=== PATIENT | female | born 1955 | race African-American/Black ===

== ENCOUNTER 2017-12-04 15:12 | Inpatient (IN) | payer MEDICARE, OTHER ==
[~2017-12-04] VITALS: Ht 162.6 cm; Wt 87.5 kg
[2017-12-04 15:45] VITALS: BP 157/98
[2017-12-04] MEDS ORDERED: DOCUSATE SODIUM 283 MG/5 ML MINI-ENEMA PR PRN (16:15)
[2017-12-04] MEDS ORDERED: INSULIN LISPRO 100 UNITS/ML SQ SCH (17:00)
[2017-12-04] MEDS ORDERED: DEXTROSE 50%-WATER 25 GM/50 ML SYRINGE IVP PRN (17:30)
[2017-12-04 18:14] LABS: GLUCOMETER DEV NAME(LOC) 2WR 1B; GLUCOSE,POINT OF CARE 219 MG/DL (70-110)
[2017-12-04] MEDS: MetFORMIN HCL 500 MG TABLET PO SCH (18:19)
[2017-12-04] MEDS: INSULIN LISPRO 100 UNITS/ML SQ SCH (18:20)
[2017-12-04 18:39] LABS: APPEARANCE,URINE CLEAR (CLEAR); BILIRUBIN,URINE NEGATIVE (NEGATIVE); GLUCOSE, URINE (UA) >=1000 mg/dL (NEGATIVE); KETONES,URINE NEGATIVE (NEGATIVE); LEUKOCYTE ESTERASE ,URINE NEGATIVE (NEGATIVE); NITRATE,URINE NEGATIVE (NEGATIVE); OCCULT BLOOD,URINE NEGATIVE (NEGATIVE); PROTEIN,URINE NEGATIVE (NEGATIVE); UROBILINOGEN,URINE 0.2 mg/dL (<=1.0)
[2017-12-04 19:26] LABS: BACTERIA,URINE None Seen /HPF (None Seen); RBC,URINE None Seen /HPF (0-2); SQUAMOUS EPITHELIAL CELL,UR Rare /LPF (None Seen); WBC,URINE None Seen /HPF (0-5)
[2017-12-04] MEDS: DOCUSATE SODIUM 100 MG CAPSULE PO SCH (21:07)
[2017-12-04] MEDS: SENNA 187 MG TABLET PO SCH (21:08)
[2017-12-04] MEDS: CARVEDILOL 6.25 MG TABLET PO SCH (21:08)
[2017-12-04] MEDS: INSULIN LISPRO 100 UNITS/ML SQ PRN (21:11)
[2017-12-04] MEDS: INSULIN GLARGINE,HUM.REC.ANLOG 100 UNITS/ML SQ SCH (21:11)
[2017-12-04 21:15] VITALS: BP 144/75
[2017-12-04 22:14] LABS: GLUCOMETER DEV NAME(LOC) 2WR 1B; GLUCOSE,POINT OF CARE 211 MG/DL (70-110)
[2017-12-05 00:37] VITALS: BP 140/83
[2017-12-05 06:43] LABS: GLUCOMETER DEV NAME(LOC) 2WR 1B; GLUCOSE,POINT OF CARE 168 MG/DL (70-110)
[2017-12-05 07:02] LABS: EOSINOPHILS % (AUTO) 0.6 % (1.0-6.0); HEMATOCRIT 41.1 % (36-46); HEMOGLOBIN 14.4 g/dL (12.0-16.0); LYMPHOCYTES # (AUTO) 2.4 K/uL (1.0-4.8); LYMPHOCYTES % (AUTO) 38.3 % (22.0-44.0); MEAN CORPUSCULAR HEMOGLOBIN 29.6 pg (26.0-34.0); MEAN CORPUSCULAR HGB CONC 35.1 G/dL (31.0-37.0); MEAN CORPUSCULAR VOLUME 84 fL (80-100); MONOCYTES # (AUTO) 0.5 K/uL (0.1-1.0); MONOCYTES % (AUTO) 7.5 % (2.0-9.0); NEUTROPHILS # (AUTO) 3.3 K/uL (1.8-7.7); NEUTROPHILS % (AUTO) 52.6 % (40.0-70.0); PLATELET COUNT (AUTO) 288 K/uL (150-450); RED BLOOD CELL COUNT(AUTO) 4.87 MIL/uL (4.00-5.20); RED CELL DISTRIBUTION WIDTH 12.9 % (11.5-14.5)
[2017-12-05 07:06] LABS: ALANINE AMINOTRANSFERASE 20 U/L (12-78); ALBUMIN 3.2 g/dL (3.4-5.0); ALKALINE PHOSPHATASE 87 U/L (46-116); ANION GAP 8 mmol/L (8-16); ASPARTATE AMINOTRANSFERASE 12 U/L (15-37); BILIRUBIN,TOTAL 0.4 mg/dL (0.1-1.0); CALCIUM, TOTAL 9.2 mg/dL (8.8-10.5); CARBON DIOXIDE 27 mmol/L (22-29); CHLORIDE 104 mmol/L (98-107); CREATININE 0.63 mg/dL (0.60-1.30); GLOMERULAR FILTR. RATE CALC > 60 mL/min (>60); GLUCOSE,RANDOM 171 mg/dL (70-110); POTASSIUM 3.9 mmol/L (3.5-5.1); SODIUM SERUM 139 mmol/L (136-145); TOTAL PROTEIN, SERUM 6.4 g/dL (6.4-8.2); UREA NITROGEN, BLOOD 12 mg/dL (7-18)
[2017-12-05 07:30] VITALS: BP 146/90
[2017-12-05] MEDS: CLOPIDOGREL BISULFATE 75 MG TABLET PO SCH (08:15)
[2017-12-05] MEDS: MetFORMIN HCL 500 MG TABLET PO SCH ×2 (08:16→17:56)
[2017-12-05] MEDS: VALSARTAN 160 MG TABLET PO SCH (08:16)
[2017-12-05] MEDS: CHOLECALCIFEROL (VIT D3) 1,000 UNITS TABLET PO SCH (08:16)
[2017-12-05] MEDS: CARVEDILOL 6.25 MG TABLET PO SCH ×2 (08:16→20:57)
[2017-12-05] MEDS: ATORVASTATIN CALCIUM 40 MG TABLET PO SCH (08:16)
[2017-12-05] MEDS: ENOXAPARIN SODIUM 40 MG/0.4 ML PF SYRINGE SQ SCH (08:17)
[2017-12-05] MEDS: INSULIN LISPRO 100 UNITS/ML SQ SCH ×3 (08:27→17:59)
[2017-12-05] MEDS: INSULIN LISPRO 100 UNITS/ML SQ PRN ×2 (08:28→21:07)
[2017-12-05] MEDS: ASPIRIN 81 MG CHEWABLE TABLET PO SCH (08:29)
[2017-12-05] MEDS: DOCUSATE SODIUM 100 MG CAPSULE PO SCH ×2 (08:29→20:56)
[2017-12-05] MEDS: FAMOTIDINE 20 MG TABLET PO SCH (08:29)
[2017-12-05] MEDS ORDERED: INSULIN LISPRO 100 UNITS/ML SQ SCH (11:30)
[2017-12-05 12:09] LABS: GLUCOMETER DEV NAME(LOC) 2WR 2E; GLUCOSE,POINT OF CARE 140 MG/DL (70-110)
[2017-12-05] MEDS ORDERED: PNEUMOCOCCAL VACCINE POLYVALENT 0.5 ML VIAL [PPSV23] IM ONE (14:15)
[2017-12-05 15:39] VITALS: BP 109/65
[2017-12-05 17:20] LABS: GLUCOMETER DEV NAME(LOC) 2WR 1B; GLUCOSE,POINT OF CARE 114 MG/DL (70-110)
[2017-12-05] MEDS ORDERED: CARV6 PO (18:34)
[2017-12-05] MEDS ORDERED: VALS160T2 PO (18:34)
[2017-12-05] MEDS ORDERED: ATOR20TA86 PO (18:34)
[2017-12-05] MEDS ORDERED: INSU3INS3 SQ (18:34)
[2017-12-05] MEDS ORDERED: ASPI-556 PO (18:34)
[2017-12-05] MEDS ORDERED: MIRALAX PO (18:34)
[2017-12-05] MEDS ORDERED: AMLO-512 PO (18:34)
[2017-12-05] MEDS ORDERED: CETI-290 PO (18:34)
[2017-12-05] MEDS ORDERED: METF500T7 PO (18:34)
[2017-12-05] MEDS ORDERED: VITAD1000 PO (18:34)
[2017-12-05] MEDS ORDERED: INSU100I3 SQ (18:34)
[2017-12-05 20:53] VITALS: BP 129/79
[2017-12-05] MEDS: SENNA 187 MG TABLET PO SCH (20:56)
[2017-12-05] MEDS: INSULIN GLARGINE,HUM.REC.ANLOG 100 UNITS/ML SQ SCH (21:10)
[2017-12-05 21:53] LABS: GLUCOMETER DEV NAME(LOC) 2WR 1B; GLUCOSE,POINT OF CARE 178 MG/DL (70-110)
[2017-12-06 03:54] VITALS: BP 132/86
[2017-12-06 06:13] LABS: GLUCOMETER DEV NAME(LOC) 2WR 2E; GLUCOSE,POINT OF CARE 141 MG/DL (70-110)
[2017-12-06 07:24] VITALS: BP 158/91
[2017-12-06] MEDS: CARVEDILOL 6.25 MG TABLET PO SCH ×2 (07:26→20:39)
[2017-12-06] MEDS ORDERED: ONDANSETRON HCL 4 MG TABLET PO PRN (08:00)
[2017-12-06] MEDS: DOCUSATE SODIUM 100 MG CAPSULE PO SCH ×2 (08:26→20:39)
[2017-12-06] MEDS: VALSARTAN 160 MG TABLET PO SCH (08:26)
[2017-12-06] MEDS: ATORVASTATIN CALCIUM 40 MG TABLET PO SCH (08:26)
[2017-12-06] MEDS: ENOXAPARIN SODIUM 40 MG/0.4 ML PF SYRINGE SQ SCH (08:26)
[2017-12-06] MEDS: FAMOTIDINE 20 MG TABLET PO SCH (08:26)
[2017-12-06] MEDS: CLOPIDOGREL BISULFATE 75 MG TABLET PO SCH (08:26)
[2017-12-06] MEDS: CHOLECALCIFEROL (VIT D3) 1,000 UNITS TABLET PO SCH (08:26)
[2017-12-06] MEDS: MetFORMIN HCL 500 MG TABLET PO SCH ×2 (08:27→17:30)
[2017-12-06] MEDS: ASPIRIN 81 MG CHEWABLE TABLET PO SCH (08:27)
[2017-12-06] MEDS: INSULIN LISPRO 100 UNITS/ML SQ PRN (08:48)
[2017-12-06] MEDS: INSULIN LISPRO 100 UNITS/ML SQ SCH ×3 (08:48→17:37)
[2017-12-06 12:29] LABS: GLUCOMETER DEV NAME(LOC) 2WR 1B; GLUCOSE,POINT OF CARE 135 MG/DL (70-110)
[2017-12-06 17:57] VITALS: BP 133/80
[2017-12-06 20:36] VITALS: BP 142/72
[2017-12-06] MEDS: SENNA 187 MG TABLET PO SCH (20:39)
[2017-12-06] MEDS: INSULIN GLARGINE,HUM.REC.ANLOG 100 UNITS/ML SQ SCH (20:48)
[2017-12-06 21:33] LABS: GLUCOMETER DEV NAME(LOC) 2WR 1B; GLUCOSE,POINT OF CARE 81 MG/DL (70-110)
[2017-12-06 22:28] LABS: GLUCOMETER DEV NAME(LOC) 2WR 2E; GLUCOSE,POINT OF CARE 107 MG/DL (70-110)
[2017-12-07 02:00] VITALS: BP 143/84
[2017-12-07 06:35] LABS: GLUCOMETER DEV NAME(LOC) 2WR 2E; GLUCOSE,POINT OF CARE 188 MG/DL (70-110)
[2017-12-07 07:43] VITALS: BP 139/90
[2017-12-07] MEDS: ENOXAPARIN SODIUM 40 MG/0.4 ML PF SYRINGE SQ SCH (08:07)
[2017-12-07] MEDS: MetFORMIN HCL 500 MG TABLET PO SCH ×2 (08:07→17:25)
[2017-12-07] MEDS: CLOPIDOGREL BISULFATE 75 MG TABLET PO SCH (08:08)
[2017-12-07] MEDS: ASPIRIN 81 MG CHEWABLE TABLET PO SCH (08:08)
[2017-12-07] MEDS: CHOLECALCIFEROL (VIT D3) 1,000 UNITS TABLET PO SCH (08:08)
[2017-12-07] MEDS: DOCUSATE SODIUM 100 MG CAPSULE PO SCH ×2 (08:08→21:36)
[2017-12-07] MEDS: FAMOTIDINE 20 MG TABLET PO SCH (08:08)
[2017-12-07] MEDS: CARVEDILOL 6.25 MG TABLET PO SCH ×2 (08:08→21:36)
[2017-12-07] MEDS: ATORVASTATIN CALCIUM 40 MG TABLET PO SCH (08:08)
[2017-12-07] MEDS: VALSARTAN 160 MG TABLET PO SCH (08:09)
[2017-12-07] MEDS: INSULIN LISPRO 100 UNITS/ML SQ SCH ×3 (08:10→17:26)
[2017-12-07] MEDS: INSULIN LISPRO 100 UNITS/ML SQ PRN ×2 (08:16→17:27)
[2017-12-07 12:04] LABS: GLUCOMETER DEV NAME(LOC) 2WR 2E; GLUCOSE,POINT OF CARE 113 MG/DL (70-110)
[2017-12-07 15:10] VITALS: BP 149/83
[2017-12-07 17:34] LABS: GLUCOMETER DEV NAME(LOC) 2WR 2E; GLUCOSE,POINT OF CARE 141 MG/DL (70-110)
[2017-12-07 21:00] VITALS: BP 132/73
[2017-12-07] MEDS: SENNA 187 MG TABLET PO SCH (21:36)
[2017-12-07] MEDS: INSULIN GLARGINE,HUM.REC.ANLOG 100 UNITS/ML SQ SCH (21:37)
[2017-12-07 22:23] LABS: GLUCOMETER DEV NAME(LOC) 2WR 2E; GLUCOSE,POINT OF CARE 124 MG/DL (70-110)
[2017-12-08 03:45] VITALS: BP 138/79
[2017-12-08 06:39] LABS: GLUCOMETER DEV NAME(LOC) 2WR 2E; GLUCOSE,POINT OF CARE 116 MG/DL (70-110)
[2017-12-08] MEDS: INSULIN LISPRO 100 UNITS/ML SQ SCH ×3 (07:00→18:18)
[2017-12-08 07:30] VITALS: BP 150/87
[2017-12-08] MEDS: MetFORMIN HCL 500 MG TABLET PO SCH ×2 (07:30→16:55)
[2017-12-08] MEDS: CARVEDILOL 6.25 MG TABLET PO SCH ×2 (09:00→21:18)
[2017-12-08] MEDS: CHOLECALCIFEROL (VIT D3) 1,000 UNITS TABLET PO SCH (09:00)
[2017-12-08] MEDS: ATORVASTATIN CALCIUM 40 MG TABLET PO SCH (09:00)
[2017-12-08] MEDS: FAMOTIDINE 20 MG TABLET PO SCH (09:00)
[2017-12-08] MEDS: DOCUSATE SODIUM 100 MG CAPSULE PO SCH ×2 (09:00→21:00)
[2017-12-08] MEDS: ASPIRIN 81 MG CHEWABLE TABLET PO SCH (09:00)
[2017-12-08] MEDS: VALSARTAN 160 MG TABLET PO SCH (09:00)
[2017-12-08] MEDS: CLOPIDOGREL BISULFATE 75 MG TABLET PO SCH (09:00)
[2017-12-08] MEDS: ENOXAPARIN SODIUM 40 MG/0.4 ML PF SYRINGE SQ SCH (09:00)
[2017-12-08 12:30] VITALS: BP 141/82
[2017-12-08] MEDS: AmLODIPine BESYLATE 5 MG TABLET PO SCH (12:37)
[2017-12-08 12:44] LABS: GLUCOMETER DEV NAME(LOC) 2WR 1B; GLUCOSE,POINT OF CARE 93 MG/DL (70-110)
[2017-12-08 15:42] VITALS: BP 128/81
[2017-12-08 17:54] LABS: GLUCOMETER DEV NAME(LOC) 2WR 2E; GLUCOSE,POINT OF CARE 85 MG/DL (70-110)
[2017-12-08] MEDS: SENNA 187 MG TABLET PO SCH (21:00)
[2017-12-08 21:13] VITALS: BP 124/72
[2017-12-08] MEDS: INSULIN GLARGINE,HUM.REC.ANLOG 100 UNITS/ML SQ SCH (21:20)
[2017-12-08 21:44] LABS: GLUCOMETER DEV NAME(LOC) 2WR 1B; GLUCOSE,POINT OF CARE 89 MG/DL (70-110)
[2017-12-08 23:58] VITALS: BP 131/76
[2017-12-09 06:30] LABS: GLUCOMETER DEV NAME(LOC) 2WR 2E; GLUCOSE,POINT OF CARE 92 MG/DL (70-110)
[2017-12-09 07:22] VITALS: BP 117/75
[2017-12-09] MEDS: FAMOTIDINE 20 MG TABLET PO SCH (08:28)
[2017-12-09] MEDS: CLOPIDOGREL BISULFATE 75 MG TABLET PO SCH (08:28)
[2017-12-09] MEDS: ASPIRIN 81 MG CHEWABLE TABLET PO SCH (08:28)
[2017-12-09] MEDS: CARVEDILOL 6.25 MG TABLET PO SCH ×2 (08:28→21:30)
[2017-12-09] MEDS: AmLODIPine BESYLATE 5 MG TABLET PO SCH (08:28)
[2017-12-09] MEDS: ATORVASTATIN CALCIUM 40 MG TABLET PO SCH (08:29)
[2017-12-09] MEDS: DOCUSATE SODIUM 100 MG CAPSULE PO SCH ×3 (08:29→21:30)
[2017-12-09] MEDS: ENOXAPARIN SODIUM 40 MG/0.4 ML PF SYRINGE SQ SCH (08:29)
[2017-12-09] MEDS: VALSARTAN 160 MG TABLET PO SCH (08:29)
[2017-12-09] MEDS: CHOLECALCIFEROL (VIT D3) 1,000 UNITS TABLET PO SCH (08:29)
[2017-12-09] MEDS: MetFORMIN HCL 500 MG TABLET PO SCH ×2 (08:29→17:23)
[2017-12-09] MEDS: INSULIN LISPRO 100 UNITS/ML SQ SCH ×3 (08:44→18:52)
[2017-12-09 12:24] LABS: GLUCOMETER DEV NAME(LOC) 2WR 2E; GLUCOSE,POINT OF CARE 131 MG/DL (70-110)
[2017-12-09 15:40] VITALS: BP 152/75
[2017-12-09 17:49] LABS: GLUCOMETER DEV NAME(LOC) 2WR 2E; GLUCOSE,POINT OF CARE 74 MG/DL (70-110)
[2017-12-09] MEDS: INSULIN GLARGINE,HUM.REC.ANLOG 100 UNITS/ML SQ SCH (21:00)
[2017-12-09] MEDS: SENNA 187 MG TABLET PO SCH ×2 (21:00→21:30)
[2017-12-09 21:24] VITALS: BP 135/65
[2017-12-09] MEDS: MELATONIN 3 MG TABLET PO SCH (21:30)
[2017-12-09 22:43] LABS: GLUCOMETER DEV NAME(LOC) 2WR 1B; GLUCOSE,POINT OF CARE 65 MG/DL (70-110)
[2017-12-09 23:18] LABS: GLUCOMETER DEV NAME(LOC) 2WR 2E; GLUCOSE,POINT OF CARE 84 MG/DL (70-110)
[2017-12-09 23:38] VITALS: BP 128/57
[2017-12-10 05:49] LABS: GLUCOMETER DEV NAME(LOC) 2WR 2E; GLUCOSE,POINT OF CARE 85 MG/DL (70-110)
[2017-12-10 07:42] VITALS: BP 145/80
[2017-12-10] MEDS: ATORVASTATIN CALCIUM 40 MG TABLET PO SCH (08:06)
[2017-12-10] MEDS: MetFORMIN HCL 500 MG TABLET PO SCH ×2 (08:06→16:21)
[2017-12-10] MEDS: ASPIRIN 81 MG CHEWABLE TABLET PO SCH (08:06)
[2017-12-10] MEDS: CHOLECALCIFEROL (VIT D3) 1,000 UNITS TABLET PO SCH (08:06)
[2017-12-10] MEDS: CLOPIDOGREL BISULFATE 75 MG TABLET PO SCH (08:07)
[2017-12-10] MEDS: DOCUSATE SODIUM 100 MG CAPSULE PO SCH ×2 (08:07→20:49)
[2017-12-10] MEDS: AmLODIPine BESYLATE 5 MG TABLET PO SCH (08:07)
[2017-12-10] MEDS: FAMOTIDINE 20 MG TABLET PO SCH (08:07)
[2017-12-10] MEDS: CARVEDILOL 6.25 MG TABLET PO SCH ×2 (08:07→20:46)
[2017-12-10] MEDS: VALSARTAN 160 MG TABLET PO SCH (08:07)
[2017-12-10] MEDS: ENOXAPARIN SODIUM 40 MG/0.4 ML PF SYRINGE SQ SCH (08:08)
[2017-12-10] MEDS: INSULIN LISPRO 100 UNITS/ML SQ SCH ×3 (08:20→18:34)
[2017-12-10 11:53] VITALS: BP 131/79
[2017-12-10 11:58] LABS: GLUCOMETER DEV NAME(LOC) 2WR 2E; GLUCOSE,POINT OF CARE 92 MG/DL (70-110)
[2017-12-10 15:33] VITALS: BP 131/69
[2017-12-10] MEDS: DICLOFENAC SODIUM 1% 100 GM GEL [2GM] TP SCH ×2 (16:21→20:46)
[2017-12-10 17:38] LABS: GLUCOMETER DEV NAME(LOC) 2WR 1B; GLUCOSE,POINT OF CARE 99 MG/DL (70-110)
[2017-12-10] MEDS: MELATONIN 3 MG TABLET PO SCH (20:48)
[2017-12-10] MEDS: SENNA 187 MG TABLET PO SCH (20:49)
[2017-12-10] MEDS: INSULIN GLARGINE,HUM.REC.ANLOG 100 UNITS/ML SQ SCH (20:50)
[2017-12-10 20:52] VITALS: BP 151/79
[2017-12-10 21:44] LABS: GLUCOMETER DEV NAME(LOC) 2WR 2E; GLUCOSE,POINT OF CARE 132 MG/DL (70-110)
[2017-12-11 02:15] VITALS: BP 132/71
[2017-12-11 06:19] LABS: GLUCOMETER DEV NAME(LOC) 2WR 2E; GLUCOSE,POINT OF CARE 98 MG/DL (70-110)
[2017-12-11 07:54] VITALS: BP 139/78
[2017-12-11] MEDS: POLYETHYLENE GLYCOL 3350 17 GM PACKET PO PRN (07:54)
[2017-12-11] MEDS: ASPIRIN 81 MG CHEWABLE TABLET PO SCH (07:55)
[2017-12-11] MEDS: CARVEDILOL 6.25 MG TABLET PO SCH ×2 (07:55→21:07)
[2017-12-11] MEDS: CHOLECALCIFEROL (VIT D3) 1,000 UNITS TABLET PO SCH (07:55)
[2017-12-11] MEDS: ENOXAPARIN SODIUM 40 MG/0.4 ML PF SYRINGE SQ SCH (07:55)
[2017-12-11] MEDS: MetFORMIN HCL 500 MG TABLET PO SCH ×2 (07:55→17:16)
[2017-12-11] MEDS: VALSARTAN 160 MG TABLET PO SCH (07:55)
[2017-12-11] MEDS: CLOPIDOGREL BISULFATE 75 MG TABLET PO SCH (07:56)
[2017-12-11] MEDS: DICLOFENAC SODIUM 1% 100 GM GEL [2GM] TP SCH ×3 (07:56→21:08)
[2017-12-11] MEDS: ATORVASTATIN CALCIUM 40 MG TABLET PO SCH (07:56)
[2017-12-11] MEDS: DOCUSATE SODIUM 100 MG CAPSULE PO SCH ×2 (07:56→21:00)
[2017-12-11] MEDS: AmLODIPine BESYLATE 5 MG TABLET PO SCH (07:56)
[2017-12-11] MEDS: FAMOTIDINE 20 MG TABLET PO SCH (07:56)
[2017-12-11] MEDS: INSULIN LISPRO 100 UNITS/ML SQ SCH ×3 (08:06→17:25)
[2017-12-11 12:38] LABS: GLUCOMETER DEV NAME(LOC) 2WR 1B; GLUCOSE,POINT OF CARE 85 MG/DL (70-110)
[2017-12-11 16:00] VITALS: BP 109/55
[2017-12-11] MEDS: SENNA 187 MG TABLET PO SCH (21:00)
[2017-12-11 21:04] VITALS: BP 156/77
[2017-12-11] MEDS: MELATONIN 3 MG TABLET PO SCH (21:07)
[2017-12-11] MEDS: INSULIN GLARGINE,HUM.REC.ANLOG 100 UNITS/ML SQ SCH (21:11)
[2017-12-11] MEDS: INSULIN LISPRO 100 UNITS/ML SQ PRN (21:12)
[2017-12-11 21:58] LABS: GLUCOMETER DEV NAME(LOC) 2WR 2E; GLUCOSE,POINT OF CARE 126 MG/DL (70-110)
[2017-12-11 21:58] LABS: GLUCOMETER DEV NAME(LOC) 2WR 2E; GLUCOSE,POINT OF CARE 179 MG/DL (70-110)
[2017-12-12 05:00] VITALS: BP 152/92
[2017-12-12 05:53] LABS: GLUCOMETER DEV NAME(LOC) 2WR 1B; GLUCOSE,POINT OF CARE 104 MG/DL (70-110)
[2017-12-12 07:10] VITALS: BP 140/75
[2017-12-12] MEDS: VALSARTAN 160 MG TABLET PO SCH (07:53)
[2017-12-12] MEDS: DICLOFENAC SODIUM 1% 100 GM GEL [2GM] TP SCH ×3 (07:53→21:34)
[2017-12-12] MEDS: CHOLECALCIFEROL (VIT D3) 1,000 UNITS TABLET PO SCH (07:53)
[2017-12-12] MEDS: ASPIRIN 81 MG CHEWABLE TABLET PO SCH (07:53)
[2017-12-12] MEDS: ATORVASTATIN CALCIUM 40 MG TABLET PO SCH (07:54)
[2017-12-12] MEDS: MetFORMIN HCL 500 MG TABLET PO SCH ×2 (07:54→16:53)
[2017-12-12] MEDS: CARVEDILOL 6.25 MG TABLET PO SCH ×2 (07:54→21:28)
[2017-12-12] MEDS: AmLODIPine BESYLATE 5 MG TABLET PO SCH (07:54)
[2017-12-12] MEDS: CLOPIDOGREL BISULFATE 75 MG TABLET PO SCH (07:54)
[2017-12-12] MEDS: FAMOTIDINE 20 MG TABLET PO SCH (07:54)
[2017-12-12] MEDS: DOCUSATE SODIUM 100 MG CAPSULE PO SCH ×2 (07:55→21:28)
[2017-12-12] MEDS: POLYETHYLENE GLYCOL 3350 17 GM PACKET PO PRN (07:55)
[2017-12-12] MEDS: ENOXAPARIN SODIUM 40 MG/0.4 ML PF SYRINGE SQ SCH (07:55)
[2017-12-12] MEDS: INSULIN LISPRO 100 UNITS/ML SQ SCH ×3 (08:53→18:01)
[2017-12-12] MEDS ORDERED: MELATONIN 3 MG TABLET PO PRN (12:15)
[2017-12-12 12:29] LABS: GLUCOMETER DEV NAME(LOC) 2WR 1B; GLUCOSE,POINT OF CARE 131 MG/DL (70-110)
[2017-12-12 15:30] VITALS: BP 124/64
[2017-12-12 17:49] LABS: GLUCOMETER DEV NAME(LOC) 2WR 2E; GLUCOSE,POINT OF CARE 119 MG/DL (70-110)
[2017-12-12 21:25] VITALS: BP 143/75
[2017-12-12] MEDS: SENNA 187 MG TABLET PO SCH (21:28)
[2017-12-12] MEDS: INSULIN GLARGINE,HUM.REC.ANLOG 100 UNITS/ML SQ SCH (21:31)
[2017-12-12] MEDS: INSULIN LISPRO 100 UNITS/ML SQ PRN (21:31)
[2017-12-12 21:43] LABS: GLUCOMETER DEV NAME(LOC) 2WR 1B; GLUCOSE,POINT OF CARE 165 MG/DL (70-110)
[2017-12-13 01:30] VITALS: BP 125/74
[2017-12-13 05:48] LABS: GLUCOMETER DEV NAME(LOC) 2WR 2E; GLUCOSE,POINT OF CARE 133 MG/DL (70-110)
[2017-12-13 08:12] VITALS: BP 154/92
[2017-12-13] MEDS: CLOPIDOGREL BISULFATE 75 MG TABLET PO SCH (08:26)
[2017-12-13] MEDS: ENOXAPARIN SODIUM 40 MG/0.4 ML PF SYRINGE SQ SCH (08:26)
[2017-12-13] MEDS: VALSARTAN 160 MG TABLET PO SCH (08:26)
[2017-12-13] MEDS: ATORVASTATIN CALCIUM 40 MG TABLET PO SCH (08:26)
[2017-12-13] MEDS: AmLODIPine BESYLATE 5 MG TABLET PO SCH (08:26)
[2017-12-13] MEDS: DICLOFENAC SODIUM 1% 100 GM GEL [2GM] TP SCH ×3 (08:26→21:37)
[2017-12-13] MEDS: MetFORMIN HCL 500 MG TABLET PO SCH ×2 (08:26→17:13)
[2017-12-13] MEDS: CHOLECALCIFEROL (VIT D3) 1,000 UNITS TABLET PO SCH (08:26)
[2017-12-13] MEDS: CARVEDILOL 6.25 MG TABLET PO SCH ×2 (08:26→21:36)
[2017-12-13] MEDS: ASPIRIN 81 MG CHEWABLE TABLET PO SCH (08:26)
[2017-12-13] MEDS: FAMOTIDINE 20 MG TABLET PO SCH (08:27)
[2017-12-13] MEDS: DOCUSATE SODIUM 100 MG CAPSULE PO SCH ×2 (08:30→21:00)
[2017-12-13] MEDS: INSULIN LISPRO 100 UNITS/ML SQ SCH ×3 (08:33→18:17)
[2017-12-13 12:09] LABS: GLUCOMETER DEV NAME(LOC) 2WR 1B; GLUCOSE,POINT OF CARE 120 MG/DL (70-110)
[2017-12-13 14:13] VITALS: BP 120/74
[2017-12-13 15:18] VITALS: BP 124/68
[2017-12-13 17:44] LABS: GLUCOMETER DEV NAME(LOC) 2WR 2E; GLUCOSE,POINT OF CARE 119 MG/DL (70-110)
[2017-12-13] MEDS: SENNA 187 MG TABLET PO SCH ×2 (21:00→21:37)
[2017-12-13 21:30] VITALS: BP 136/87
[2017-12-13] MEDS: INSULIN GLARGINE,HUM.REC.ANLOG 100 UNITS/ML SQ SCH (21:39)
[2017-12-13 22:19] LABS: GLUCOMETER DEV NAME(LOC) 2WR 2E; GLUCOSE,POINT OF CARE 109 MG/DL (70-110)
[2017-12-14 05:00] VITALS: BP 123/73
[2017-12-14 05:59] LABS: GLUCOMETER DEV NAME(LOC) 2WR 1B; GLUCOSE,POINT OF CARE 115 MG/DL (70-110)
[2017-12-14 07:45] VITALS: BP 139/92
[2017-12-14] MEDS: DICLOFENAC SODIUM 1% 100 GM GEL [2GM] TP SCH ×3 (07:59→21:07)
[2017-12-14] MEDS: ATORVASTATIN CALCIUM 40 MG TABLET PO SCH (08:00)
[2017-12-14] MEDS: ENOXAPARIN SODIUM 40 MG/0.4 ML PF SYRINGE SQ SCH (08:00)
[2017-12-14] MEDS: AmLODIPine BESYLATE 5 MG TABLET PO SCH (08:00)
[2017-12-14] MEDS: MetFORMIN HCL 500 MG TABLET PO SCH ×2 (08:02→16:56)
[2017-12-14] MEDS: VALSARTAN 160 MG TABLET PO SCH (08:02)
[2017-12-14] MEDS: CHOLECALCIFEROL (VIT D3) 1,000 UNITS TABLET PO SCH (08:02)
[2017-12-14] MEDS: CLOPIDOGREL BISULFATE 75 MG TABLET PO SCH (08:02)
[2017-12-14] MEDS: DOCUSATE SODIUM 100 MG CAPSULE PO SCH ×3 (08:03→21:07)
[2017-12-14] MEDS: ASPIRIN 81 MG CHEWABLE TABLET PO SCH (08:03)
[2017-12-14] MEDS: CARVEDILOL 6.25 MG TABLET PO SCH ×2 (08:03→21:07)
[2017-12-14] MEDS: FAMOTIDINE 20 MG TABLET PO SCH (08:08)
[2017-12-14] MEDS: INSULIN LISPRO 100 UNITS/ML SQ SCH ×3 (08:14→18:15)
[2017-12-14 12:03] LABS: GLUCOMETER DEV NAME(LOC) 2WR 2E; GLUCOSE,POINT OF CARE 119 MG/DL (70-110)
[2017-12-14 15:59] VITALS: BP 115/74
[2017-12-14 17:53] LABS: GLUCOMETER DEV NAME(LOC) 2WR 1B; GLUCOSE,POINT OF CARE 84 MG/DL (70-110)
[2017-12-14] MEDS: SENNA 187 MG TABLET PO SCH ×2 (21:00→21:07)
[2017-12-14 21:02] VITALS: BP 129/84
[2017-12-14] MEDS: INSULIN GLARGINE,HUM.REC.ANLOG 100 UNITS/ML SQ SCH (21:20)
[2017-12-14 22:08] LABS: GLUCOMETER DEV NAME(LOC) 2WR 1B; GLUCOSE,POINT OF CARE 100 MG/DL (70-110)
[2017-12-15 00:48] LABS: GLUCOMETER DEV NAME(LOC) 2WR 2E; GLUCOSE,POINT OF CARE 115 MG/DL (70-110)
[2017-12-15 01:00] VITALS: BP 140/89
[2017-12-15 06:03] LABS: GLUCOMETER DEV NAME(LOC) 2WR 2E; GLUCOSE,POINT OF CARE 147 MG/DL (70-110)
[2017-12-15 07:17] VITALS: BP 148/84
[2017-12-15] MEDS: VALSARTAN 160 MG TABLET PO SCH (07:37)
[2017-12-15] MEDS: CHOLECALCIFEROL (VIT D3) 1,000 UNITS TABLET PO SCH (07:37)
[2017-12-15] MEDS: ASPIRIN 81 MG CHEWABLE TABLET PO SCH (07:38)
[2017-12-15] MEDS: CLOPIDOGREL BISULFATE 75 MG TABLET PO SCH (07:38)
[2017-12-15] MEDS: ATORVASTATIN CALCIUM 40 MG TABLET PO SCH (07:38)
[2017-12-15] MEDS: CARVEDILOL 6.25 MG TABLET PO SCH ×2 (07:38→20:12)
[2017-12-15] MEDS: MetFORMIN HCL 500 MG TABLET PO SCH ×2 (07:38→17:25)
[2017-12-15] MEDS: AmLODIPine BESYLATE 5 MG TABLET PO SCH (07:38)
[2017-12-15] MEDS: FAMOTIDINE 20 MG TABLET PO SCH (07:38)
[2017-12-15] MEDS: INSULIN LISPRO 100 UNITS/ML SQ SCH ×3 (07:39→17:27)
[2017-12-15] MEDS: ENOXAPARIN SODIUM 40 MG/0.4 ML PF SYRINGE SQ SCH (07:39)
[2017-12-15] MEDS: INSULIN LISPRO 100 UNITS/ML SQ PRN (07:40)
[2017-12-15] MEDS: DICLOFENAC SODIUM 1% 100 GM GEL [2GM] TP SCH ×3 (07:41→20:13)
[2017-12-15] MEDS ORDERED: AmLODIPine BESYLATE 10 MG TABLET PO SCH (09:00)
[2017-12-15 12:04] LABS: GLUCOMETER DEV NAME(LOC) 2WR 1B; GLUCOSE,POINT OF CARE 116 MG/DL (70-110)
[2017-12-15 15:52] VITALS: BP 121/77
[2017-12-15 17:44] LABS: GLUCOMETER DEV NAME(LOC) 2WR 2E; GLUCOSE,POINT OF CARE 137 MG/DL (70-110)
[2017-12-15 20:11] VITALS: BP 124/70
[2017-12-15] MEDS: DOCUSATE SODIUM 100 MG CAPSULE PO SCH (20:13)
[2017-12-15] MEDS: SENNA 187 MG TABLET PO SCH (20:13)
[2017-12-15] MEDS: INSULIN GLARGINE,HUM.REC.ANLOG 100 UNITS/ML SQ SCH (21:23)
[2017-12-15 22:18] LABS: GLUCOMETER DEV NAME(LOC) 2WR 2E; GLUCOSE,POINT OF CARE 92 MG/DL (70-110)
[2017-12-16 01:00] VITALS: BP 107/62
[2017-12-16 06:19] LABS: GLUCOMETER DEV NAME(LOC) 2WR 2E; GLUCOSE,POINT OF CARE 131 MG/DL (70-110)
[2017-12-16 07:15] VITALS: BP 112/67
[2017-12-16] MEDS: MetFORMIN HCL 500 MG TABLET PO SCH ×2 (07:51→15:40)
[2017-12-16] MEDS: CLOPIDOGREL BISULFATE 75 MG TABLET PO SCH (07:52)
[2017-12-16] MEDS: ASPIRIN 81 MG CHEWABLE TABLET PO SCH (07:52)
[2017-12-16] MEDS: CARVEDILOL 6.25 MG TABLET PO SCH ×2 (07:52→20:29)
[2017-12-16] MEDS: FAMOTIDINE 20 MG TABLET PO SCH (07:52)
[2017-12-16] MEDS: CHOLECALCIFEROL (VIT D3) 1,000 UNITS TABLET PO SCH (07:52)
[2017-12-16] MEDS: ATORVASTATIN CALCIUM 40 MG TABLET PO SCH (07:52)
[2017-12-16] MEDS: ENOXAPARIN SODIUM 40 MG/0.4 ML PF SYRINGE SQ SCH (07:53)
[2017-12-16 07:56] VITALS: BP 112/67
[2017-12-16] MEDS: ACETAMINOPHEN 325 MG TABLET PO PRN ×2 (07:56→15:40)
[2017-12-16] MEDS: VALSARTAN 160 MG TABLET PO SCH (07:57)
[2017-12-16] MEDS: AmLODIPine BESYLATE 10 MG TABLET PO SCH (07:57)
[2017-12-16] MEDS: INSULIN LISPRO 100 UNITS/ML SQ SCH ×3 (07:59→17:38)
[2017-12-16] MEDS: DICLOFENAC SODIUM 1% 100 GM GEL [2GM] TP SCH ×3 (09:21→20:29)
[2017-12-16 14:08] LABS: GLUCOMETER DEV NAME(LOC) 2WR 2E; GLUCOSE,POINT OF CARE 103 MG/DL (70-110)
[2017-12-16 15:34] VITALS: BP 131/76
[2017-12-16 17:08] LABS: GLUCOMETER DEV NAME(LOC) 2WR 1B; GLUCOSE,POINT OF CARE 107 MG/DL (70-110)
[2017-12-16] MEDS: SENNA 187 MG TABLET PO SCH (20:29)
[2017-12-16] MEDS: DOCUSATE SODIUM 100 MG CAPSULE PO SCH ×2 (20:29→20:32)
[2017-12-16] MEDS: INSULIN GLARGINE,HUM.REC.ANLOG 100 UNITS/ML SQ SCH (20:31)
[2017-12-16 20:40] VITALS: BP 133/83
[2017-12-16 20:49] LABS: GLUCOMETER DEV NAME(LOC) 2WR 2E; GLUCOSE,POINT OF CARE 132 MG/DL (70-110)
[2017-12-17 00:05] VITALS: BP 133/74
[2017-12-17 06:04] LABS: GLUCOMETER DEV NAME(LOC) 2WR 1B; GLUCOSE,POINT OF CARE 115 MG/DL (70-110)
[2017-12-17 07:34] VITALS: BP 126/79
[2017-12-17] MEDS: ACETAMINOPHEN 325 MG TABLET PO PRN (07:34)
[2017-12-17] MEDS: ENOXAPARIN SODIUM 40 MG/0.4 ML PF SYRINGE SQ SCH (07:35)
[2017-12-17] MEDS: FAMOTIDINE 20 MG TABLET PO SCH (07:35)
[2017-12-17] MEDS: MetFORMIN HCL 500 MG TABLET PO SCH ×2 (07:35→17:20)
[2017-12-17] MEDS: CARVEDILOL 6.25 MG TABLET PO SCH ×2 (07:36→20:29)
[2017-12-17] MEDS: CHOLECALCIFEROL (VIT D3) 1,000 UNITS TABLET PO SCH (07:36)
[2017-12-17] MEDS: CLOPIDOGREL BISULFATE 75 MG TABLET PO SCH (07:36)
[2017-12-17] MEDS: VALSARTAN 160 MG TABLET PO SCH (07:36)
[2017-12-17] MEDS: AmLODIPine BESYLATE 10 MG TABLET PO SCH (07:36)
[2017-12-17] MEDS: ATORVASTATIN CALCIUM 40 MG TABLET PO SCH (07:36)
[2017-12-17] MEDS: ASPIRIN 81 MG CHEWABLE TABLET PO SCH (07:37)
[2017-12-17] MEDS: INSULIN LISPRO 100 UNITS/ML SQ SCH ×3 (07:39→17:22)
[2017-12-17] MEDS: DICLOFENAC SODIUM 1% 100 GM GEL [2GM] TP SCH ×3 (07:48→20:29)
[2017-12-17 12:19] LABS: GLUCOMETER DEV NAME(LOC) 2WR 2E; GLUCOSE,POINT OF CARE 125 MG/DL (70-110)
[2017-12-17 15:50] VITALS: BP 119/65
[2017-12-17 17:18] LABS: GLUCOMETER DEV NAME(LOC) 2WR 1B; GLUCOSE,POINT OF CARE 133 MG/DL (70-110)
[2017-12-17 20:24] VITALS: BP 113/65
[2017-12-17] MEDS: DOCUSATE SODIUM 100 MG CAPSULE PO SCH (20:29)
[2017-12-17] MEDS: SENNA 187 MG TABLET PO SCH (20:30)
[2017-12-17] MEDS: INSULIN GLARGINE,HUM.REC.ANLOG 100 UNITS/ML SQ SCH (21:39)
[2017-12-17 21:49] LABS: GLUCOMETER DEV NAME(LOC) 2WR 2E; GLUCOSE,POINT OF CARE 120 MG/DL (70-110)
[2017-12-17 23:19] VITALS: BP 116/70
[2017-12-18 07:54] LABS: GLUCOMETER DEV NAME(LOC) 2WR 2E; GLUCOSE,POINT OF CARE 123 MG/DL (70-110)
[2017-12-18 08:22] VITALS: BP 144/95
[2017-12-18] MEDS: ENOXAPARIN SODIUM 40 MG/0.4 ML PF SYRINGE SQ SCH (08:23)
[2017-12-18] MEDS: CHOLECALCIFEROL (VIT D3) 1,000 UNITS TABLET PO SCH (08:23)
[2017-12-18] MEDS: DICLOFENAC SODIUM 1% 100 GM GEL [2GM] TP SCH ×3 (08:23→23:25)
[2017-12-18] MEDS: ASPIRIN 81 MG CHEWABLE TABLET PO SCH (08:24)
[2017-12-18] MEDS: VALSARTAN 160 MG TABLET PO SCH (08:24)
[2017-12-18] MEDS: CARVEDILOL 6.25 MG TABLET PO SCH ×2 (08:24→20:45)
[2017-12-18] MEDS: MetFORMIN HCL 500 MG TABLET PO SCH ×2 (08:24→17:56)
[2017-12-18] MEDS: CLOPIDOGREL BISULFATE 75 MG TABLET PO SCH (08:24)
[2017-12-18] MEDS: ATORVASTATIN CALCIUM 40 MG TABLET PO SCH (08:24)
[2017-12-18] MEDS: AmLODIPine BESYLATE 10 MG TABLET PO SCH (08:24)
[2017-12-18] MEDS: FAMOTIDINE 20 MG TABLET PO SCH (08:25)
[2017-12-18] MEDS: ACETAMINOPHEN 325 MG TABLET PO PRN ×2 (08:28→23:24)
[2017-12-18] MEDS: INSULIN LISPRO 100 UNITS/ML SQ SCH ×3 (08:31→17:55)
[2017-12-18 12:54] LABS: GLUCOMETER DEV NAME(LOC) 2WR 1B; GLUCOSE,POINT OF CARE 96 MG/DL (70-110)
[2017-12-18 17:05] VITALS: BP 109/62
[2017-12-18 17:58] LABS: GLUCOMETER DEV NAME(LOC) 2WR 2E; GLUCOSE,POINT OF CARE 101 MG/DL (70-110)
[2017-12-18] MEDS: DOCUSATE SODIUM 100 MG CAPSULE PO SCH (20:45)
[2017-12-18] MEDS: SENNA 187 MG TABLET PO SCH (20:45)
[2017-12-18] MEDS: INSULIN GLARGINE,HUM.REC.ANLOG 100 UNITS/ML SQ SCH (20:48)
[2017-12-18 20:51] VITALS: BP 127/68
[2017-12-18 23:24] VITALS: BP 134/76
[2017-12-18 23:24] LABS: GLUCOMETER DEV NAME(LOC) 2WR 1B; GLUCOSE,POINT OF CARE 121 MG/DL (70-110)
[2017-12-19 06:19] LABS: GLUCOMETER DEV NAME(LOC) 2WR 2E; GLUCOSE,POINT OF CARE 135 MG/DL (70-110)
[2017-12-19 07:18] VITALS: BP 126/77
[2017-12-19] MEDS: ACETAMINOPHEN 325 MG TABLET PO PRN (07:18)
[2017-12-19] MEDS: MetFORMIN HCL 500 MG TABLET PO SCH ×2 (07:56→17:54)
[2017-12-19] MEDS: CHOLECALCIFEROL (VIT D3) 1,000 UNITS TABLET PO SCH (07:56)
[2017-12-19] MEDS: CARVEDILOL 6.25 MG TABLET PO SCH ×2 (07:56→21:19)
[2017-12-19] MEDS: CLOPIDOGREL BISULFATE 75 MG TABLET PO SCH (07:57)
[2017-12-19] MEDS: FAMOTIDINE 20 MG TABLET PO SCH (07:57)
[2017-12-19] MEDS: ATORVASTATIN CALCIUM 40 MG TABLET PO SCH (07:57)
[2017-12-19] MEDS: VALSARTAN 160 MG TABLET PO SCH (07:57)
[2017-12-19] MEDS: AmLODIPine BESYLATE 10 MG TABLET PO SCH (07:57)
[2017-12-19] MEDS: ASPIRIN 81 MG CHEWABLE TABLET PO SCH (07:57)
[2017-12-19] MEDS: DICLOFENAC SODIUM 1% 100 GM GEL [2GM] TP SCH ×3 (07:57→21:36)
[2017-12-19] MEDS: INSULIN LISPRO 100 UNITS/ML SQ SCH ×3 (08:03→17:58)
[2017-12-19] MEDS: ENOXAPARIN SODIUM 40 MG/0.4 ML PF SYRINGE SQ SCH (08:04)
[2017-12-19] MEDS: POLYETHYLENE GLYCOL 3350 17 GM PACKET PO PRN (10:23)
[2017-12-19 12:14] LABS: GLUCOMETER DEV NAME(LOC) 2WR 1B; GLUCOSE,POINT OF CARE 158 MG/DL (70-110)
[2017-12-19] MEDS: INSULIN LISPRO 100 UNITS/ML SQ PRN ×2 (12:52→21:29)
[2017-12-19 15:00] VITALS: BP 122/71
[2017-12-19 17:54] LABS: GLUCOMETER DEV NAME(LOC) 2WR 2E; GLUCOSE,POINT OF CARE 112 MG/DL (70-110)
[2017-12-19] MEDS: SENNA 187 MG TABLET PO SCH (21:19)
[2017-12-19] MEDS: DOCUSATE SODIUM 100 MG CAPSULE PO SCH (21:19)
[2017-12-19 21:20] VITALS: BP 132/66
[2017-12-19] MEDS: INSULIN GLARGINE,HUM.REC.ANLOG 100 UNITS/ML SQ SCH (21:27)
[2017-12-19 21:43] LABS: GLUCOMETER DEV NAME(LOC) 2WR 1B; GLUCOSE,POINT OF CARE 184 MG/DL (70-110)
[2017-12-19 23:51] VITALS: BP 118/56
[2017-12-20 06:49] LABS: GLUCOMETER DEV NAME(LOC) 2WR 2E; GLUCOSE,POINT OF CARE 122 MG/DL (70-110)
[2017-12-20 07:19] VITALS: BP 125/76
[2017-12-20] MEDS: CHOLECALCIFEROL (VIT D3) 1,000 UNITS TABLET PO SCH (08:14)
[2017-12-20] MEDS: DICLOFENAC SODIUM 1% 100 GM GEL [2GM] TP SCH ×3 (08:14→20:31)
[2017-12-20] MEDS: AmLODIPine BESYLATE 10 MG TABLET PO SCH (08:15)
[2017-12-20] MEDS: VALSARTAN 160 MG TABLET PO SCH (08:15)
[2017-12-20] MEDS: ATORVASTATIN CALCIUM 40 MG TABLET PO SCH (08:15)
[2017-12-20] MEDS: CARVEDILOL 6.25 MG TABLET PO SCH ×2 (08:16→20:31)
[2017-12-20] MEDS: ASPIRIN 81 MG CHEWABLE TABLET PO SCH (08:16)
[2017-12-20 08:18] VITALS: BP 125/76
[2017-12-20] MEDS: MetFORMIN HCL 500 MG TABLET PO SCH ×2 (08:18→17:00)
[2017-12-20] MEDS: CLOPIDOGREL BISULFATE 75 MG TABLET PO SCH (08:18)
[2017-12-20] MEDS: FAMOTIDINE 20 MG TABLET PO SCH (08:18)
[2017-12-20] MEDS: ACETAMINOPHEN 325 MG TABLET PO PRN (08:18)
[2017-12-20] MEDS: ENOXAPARIN SODIUM 40 MG/0.4 ML PF SYRINGE SQ SCH (08:19)
[2017-12-20] MEDS: INSULIN LISPRO 100 UNITS/ML SQ SCH ×3 (08:25→17:04)
[2017-12-20 12:43] LABS: GLUCOMETER DEV NAME(LOC) 2WR 1B; GLUCOSE,POINT OF CARE 163 MG/DL (70-110)
[2017-12-20 16:44] VITALS: BP 123/67
[2017-12-20 17:48] LABS: GLUCOMETER DEV NAME(LOC) 2WR 1B; GLUCOSE,POINT OF CARE 110 MG/DL (70-110)
[2017-12-20] MEDS: SENNA 187 MG TABLET PO SCH (20:31)
[2017-12-20] MEDS: DOCUSATE SODIUM 100 MG CAPSULE PO SCH (20:31)
[2017-12-20] MEDS: INSULIN GLARGINE,HUM.REC.ANLOG 100 UNITS/ML SQ SCH (20:39)
[2017-12-20] MEDS: INSULIN LISPRO 100 UNITS/ML SQ PRN (20:41)
[2017-12-20 20:46] VITALS: BP 136/84
[2017-12-20 22:38] LABS: GLUCOMETER DEV NAME(LOC) 2WR 1B; GLUCOSE,POINT OF CARE 183 MG/DL (70-110)
[2017-12-21 03:00] VITALS: BP 117/68
[2017-12-21 05:58] LABS: GLUCOMETER DEV NAME(LOC) 2WR 2E; GLUCOSE,POINT OF CARE 128 MG/DL (70-110)
[2017-12-21 07:45] VITALS: BP 123/70
[2017-12-21] MEDS: ASPIRIN 81 MG CHEWABLE TABLET PO SCH (07:52)
[2017-12-21] MEDS: ATORVASTATIN CALCIUM 40 MG TABLET PO SCH (07:52)
[2017-12-21] MEDS: ENOXAPARIN SODIUM 40 MG/0.4 ML PF SYRINGE SQ SCH (07:52)
[2017-12-21] MEDS: AmLODIPine BESYLATE 10 MG TABLET PO SCH (07:52)
[2017-12-21] MEDS: CARVEDILOL 6.25 MG TABLET PO SCH ×2 (07:52→21:17)
[2017-12-21] MEDS: FAMOTIDINE 20 MG TABLET PO SCH (07:52)
[2017-12-21] MEDS: CHOLECALCIFEROL (VIT D3) 1,000 UNITS TABLET PO SCH (07:52)
[2017-12-21] MEDS: CLOPIDOGREL BISULFATE 75 MG TABLET PO SCH (07:52)
[2017-12-21] MEDS: MetFORMIN HCL 500 MG TABLET PO SCH ×2 (07:52→16:39)
[2017-12-21] MEDS: VALSARTAN 160 MG TABLET PO SCH (07:52)
[2017-12-21] MEDS: DICLOFENAC SODIUM 1% 100 GM GEL [2GM] TP SCH ×3 (07:53→21:17)
[2017-12-21] MEDS: INSULIN LISPRO 100 UNITS/ML SQ SCH ×3 (08:01→17:38)
[2017-12-21 12:49] LABS: GLUCOMETER DEV NAME(LOC) 2WR 1B; GLUCOSE,POINT OF CARE 155 MG/DL (70-110)
[2017-12-21] MEDS: INSULIN LISPRO 100 UNITS/ML SQ PRN ×2 (13:06→17:40)
[2017-12-21 16:05] VITALS: BP 117/81
[2017-12-21 17:03] LABS: GLUCOMETER DEV NAME(LOC) 2WR 1B; GLUCOSE,POINT OF CARE 175 MG/DL (70-110)
[2017-12-21] MEDS: ACETAMINOPHEN 325 MG TABLET PO PRN (18:37)
[2017-12-21 21:15] VITALS: BP 123/69
[2017-12-21] MEDS: DOCUSATE SODIUM 100 MG CAPSULE PO SCH (21:17)
[2017-12-21] MEDS: SENNA 187 MG TABLET PO SCH (21:17)
[2017-12-21 21:19] LABS: GLUCOMETER DEV NAME(LOC) 2WR 1B; GLUCOSE,POINT OF CARE 130 MG/DL (70-110)
[2017-12-21] MEDS: INSULIN GLARGINE,HUM.REC.ANLOG 100 UNITS/ML SQ SCH (21:19)
[2017-12-22] VITALS: BP 118/72
[2017-12-22 07:30] VITALS: BP 139/73
[2017-12-22] MEDS: DICLOFENAC SODIUM 1% 100 GM GEL [2GM] TP SCH ×3 (08:00→20:51)
[2017-12-22] MEDS: FAMOTIDINE 20 MG TABLET PO SCH (08:00)
[2017-12-22] MEDS: MetFORMIN HCL 500 MG TABLET PO SCH ×2 (08:00→17:37)
[2017-12-22] MEDS: VALSARTAN 160 MG TABLET PO SCH (08:00)
[2017-12-22] MEDS: CHOLECALCIFEROL (VIT D3) 1,000 UNITS TABLET PO SCH (08:00)
[2017-12-22] MEDS: CARVEDILOL 6.25 MG TABLET PO SCH ×2 (08:00→20:52)
[2017-12-22] MEDS: ENOXAPARIN SODIUM 40 MG/0.4 ML PF SYRINGE SQ SCH (08:00)
[2017-12-22] MEDS: AmLODIPine BESYLATE 10 MG TABLET PO SCH (08:00)
[2017-12-22] MEDS: CLOPIDOGREL BISULFATE 75 MG TABLET PO SCH (08:00)
[2017-12-22] MEDS: ATORVASTATIN CALCIUM 40 MG TABLET PO SCH (08:01)
[2017-12-22] MEDS: ASPIRIN 81 MG CHEWABLE TABLET PO SCH (08:01)
[2017-12-22] MEDS: INSULIN LISPRO 100 UNITS/ML SQ SCH ×3 (08:06→17:38)
[2017-12-22] MEDS: ACETAMINOPHEN 325 MG TABLET PO PRN ×2 (13:41→18:23)
[2017-12-22 14:55] LABS: GLUCOMETER DEV NAME(LOC) 2WR 2E; GLUCOSE,POINT OF CARE 128 MG/DL (70-110)
[2017-12-22 14:55] LABS: GLUCOMETER DEV NAME(LOC) 2WR 2E; GLUCOSE,POINT OF CARE 125 MG/DL (70-110)
[2017-12-22 15:30] VITALS: BP 115/69
[2017-12-22 19:09] LABS: GLUCOMETER DEV NAME(LOC) 2WR 2E; GLUCOSE,POINT OF CARE 94 MG/DL (70-110)
[2017-12-22 20:45] VITALS: BP 126/72
[2017-12-22] MEDS: DOCUSATE SODIUM 100 MG CAPSULE PO SCH (20:51)
[2017-12-22] MEDS: SENNA 187 MG TABLET PO SCH (20:52)
[2017-12-22] MEDS: INSULIN GLARGINE,HUM.REC.ANLOG 100 UNITS/ML SQ SCH (20:58)
[2017-12-22] MEDS: INSULIN LISPRO 100 UNITS/ML SQ PRN (20:59)
[2017-12-22 21:14] LABS: GLUCOMETER DEV NAME(LOC) 2WR 1B; GLUCOSE,POINT OF CARE 191 MG/DL (70-110)
[2017-12-23 01:04] VITALS: BP 128/73
[2017-12-23] MEDS: ACETAMINOPHEN 325 MG TABLET PO PRN (01:04)
[2017-12-23 06:24] LABS: GLUCOMETER DEV NAME(LOC) 2WR 1B; GLUCOSE,POINT OF CARE 160 MG/DL (70-110)
[2017-12-23 07:40] VITALS: BP 158/96
[2017-12-23] MEDS: DICLOFENAC SODIUM 1% 100 GM GEL [2GM] TP SCH ×3 (07:46→20:34)
[2017-12-23] MEDS: CHOLECALCIFEROL (VIT D3) 1,000 UNITS TABLET PO SCH (07:46)
[2017-12-23] MEDS: VALSARTAN 160 MG TABLET PO SCH (07:46)
[2017-12-23] MEDS: ENOXAPARIN SODIUM 40 MG/0.4 ML PF SYRINGE SQ SCH (07:46)
[2017-12-23] MEDS: MetFORMIN HCL 500 MG TABLET PO SCH ×2 (07:46→17:25)
[2017-12-23] MEDS: ASPIRIN 81 MG CHEWABLE TABLET PO SCH (07:47)
[2017-12-23] MEDS: ATORVASTATIN CALCIUM 40 MG TABLET PO SCH (07:47)
[2017-12-23] MEDS: AmLODIPine BESYLATE 10 MG TABLET PO SCH (07:47)
[2017-12-23] MEDS: FAMOTIDINE 20 MG TABLET PO SCH (07:47)
[2017-12-23] MEDS: CLOPIDOGREL BISULFATE 75 MG TABLET PO SCH (07:47)
[2017-12-23] MEDS: CARVEDILOL 6.25 MG TABLET PO SCH ×2 (07:47→20:34)
[2017-12-23] MEDS: INSULIN LISPRO 100 UNITS/ML SQ SCH ×3 (07:51→17:25)
[2017-12-23] MEDS: INSULIN LISPRO 100 UNITS/ML SQ PRN ×2 (07:52→20:46)
[2017-12-23 13:14] LABS: GLUCOMETER DEV NAME(LOC) 2WR 1B; GLUCOSE,POINT OF CARE 102 MG/DL (70-110)
[2017-12-23] MEDS ORDERED: VITAD1000 PO (14:52)
[2017-12-23] MEDS ORDERED: INSU100I3 SQ (14:52)
[2017-12-23] MEDS ORDERED: CLOP75 PO (14:52)
[2017-12-23] MEDS ORDERED: FAMO20 PO (14:54)
[2017-12-23] MEDS ORDERED: DICL2100G TP (14:54)
[2017-12-23 15:45] VITALS: BP 121/68
[2017-12-23 17:14] LABS: GLUCOMETER DEV NAME(LOC) 2WR 2E; GLUCOSE,POINT OF CARE 96 MG/DL (70-110)
[2017-12-23 20:32] VITALS: BP 131/79
[2017-12-23] MEDS: SENNA 187 MG TABLET PO SCH (20:34)
[2017-12-23] MEDS: DOCUSATE SODIUM 100 MG CAPSULE PO SCH (20:34)
[2017-12-23] MEDS: INSULIN GLARGINE,HUM.REC.ANLOG 100 UNITS/ML SQ SCH (20:45)
[2017-12-23 21:49] LABS: GLUCOMETER DEV NAME(LOC) 2WR 1B; GLUCOSE,POINT OF CARE 142 MG/DL (70-110)
[2017-12-24 03:13] VITALS: BP 129/70
[2017-12-24 05:59] LABS: GLUCOMETER DEV NAME(LOC) 2WR 1B; GLUCOSE,POINT OF CARE 119 MG/DL (70-110)
[2017-12-24 08:35] VITALS: BP 126/75
[2017-12-24] MEDS: MetFORMIN HCL 500 MG TABLET PO SCH ×2 (08:38→17:17)
[2017-12-24] MEDS: DICLOFENAC SODIUM 1% 100 GM GEL [2GM] TP SCH ×3 (08:40→21:28)
[2017-12-24] MEDS: ATORVASTATIN CALCIUM 40 MG TABLET PO SCH (08:40)
[2017-12-24] MEDS: ASPIRIN 81 MG CHEWABLE TABLET PO SCH (08:40)
[2017-12-24] MEDS: CHOLECALCIFEROL (VIT D3) 1,000 UNITS TABLET PO SCH (08:40)
[2017-12-24] MEDS: CARVEDILOL 6.25 MG TABLET PO SCH ×2 (08:41→21:28)
[2017-12-24] MEDS: CLOPIDOGREL BISULFATE 75 MG TABLET PO SCH (08:41)
[2017-12-24] MEDS: VALSARTAN 160 MG TABLET PO SCH (08:41)
[2017-12-24] MEDS: AmLODIPine BESYLATE 10 MG TABLET PO SCH (08:41)
[2017-12-24] MEDS: FAMOTIDINE 20 MG TABLET PO SCH (08:42)
[2017-12-24] MEDS: ACETAMINOPHEN 325 MG TABLET PO PRN (08:44)
[2017-12-24] MEDS: INSULIN LISPRO 100 UNITS/ML SQ SCH ×3 (08:46→17:20)
[2017-12-24 12:29] LABS: GLUCOMETER DEV NAME(LOC) 2WR 1B; GLUCOSE,POINT OF CARE 107 MG/DL (70-110)
[2017-12-24 15:34] VITALS: BP 152/86
[2017-12-24 17:19] LABS: GLUCOMETER DEV NAME(LOC) 2WR 2E; GLUCOSE,POINT OF CARE 113 MG/DL (70-110)
[2017-12-24 21:24] VITALS: BP 112/61
[2017-12-24] MEDS: DOCUSATE SODIUM 100 MG CAPSULE PO SCH (21:28)
[2017-12-24] MEDS: SENNA 187 MG TABLET PO SCH (21:28)
[2017-12-24] MEDS: INSULIN GLARGINE,HUM.REC.ANLOG 100 UNITS/ML SQ SCH (21:38)
[2017-12-24] MEDS: INSULIN LISPRO 100 UNITS/ML SQ PRN (21:39)
[2017-12-24 21:49] LABS: GLUCOMETER DEV NAME(LOC) 2WR 2E; GLUCOSE,POINT OF CARE 155 MG/DL (70-110)
[2017-12-24 23:45] VITALS: BP 132/71
[2017-12-25 06:14] LABS: GLUCOMETER DEV NAME(LOC) 2WR 1B; GLUCOSE,POINT OF CARE 107 MG/DL (70-110)
[2017-12-25 07:15] VITALS: BP 127/78
[2017-12-25] MEDS: MetFORMIN HCL 500 MG TABLET PO SCH ×2 (08:51→17:46)
[2017-12-25] MEDS: DICLOFENAC SODIUM 1% 100 GM GEL [2GM] TP SCH ×3 (08:51→20:47)
[2017-12-25] MEDS: CLOPIDOGREL BISULFATE 75 MG TABLET PO SCH (08:52)
[2017-12-25] MEDS: AmLODIPine BESYLATE 10 MG TABLET PO SCH (08:53)
[2017-12-25] MEDS: VALSARTAN 160 MG TABLET PO SCH (08:53)
[2017-12-25] MEDS: CHOLECALCIFEROL (VIT D3) 1,000 UNITS TABLET PO SCH (08:54)
[2017-12-25] MEDS: ATORVASTATIN CALCIUM 40 MG TABLET PO SCH (08:54)
[2017-12-25] MEDS: FAMOTIDINE 20 MG TABLET PO SCH (08:55)
[2017-12-25] MEDS: CARVEDILOL 6.25 MG TABLET PO SCH ×2 (08:55→20:45)
[2017-12-25] MEDS: ASPIRIN 81 MG CHEWABLE TABLET PO SCH (08:56)
[2017-12-25] MEDS: INSULIN LISPRO 100 UNITS/ML SQ SCH ×3 (08:58→17:50)
[2017-12-25 12:04] LABS: GLUCOMETER DEV NAME(LOC) 2WR 2E; GLUCOSE,POINT OF CARE 141 MG/DL (70-110)
[2017-12-25] MEDS: INSULIN LISPRO 100 UNITS/ML SQ PRN ×2 (12:33→20:52)
[2017-12-25 15:52] VITALS: BP 139/63
[2017-12-25 17:38] LABS: GLUCOMETER DEV NAME(LOC) 2WR 2E; GLUCOSE,POINT OF CARE 130 MG/DL (70-110)
[2017-12-25] MEDS ORDERED: ATOR40TA28 PO (17:55)
[2017-12-25] MEDS ORDERED: DSS100 PO (17:57)
[2017-12-25 20:40] VITALS: BP 143/84
[2017-12-25] MEDS: SENNA 187 MG TABLET PO SCH (20:45)
[2017-12-25] MEDS: DOCUSATE SODIUM 100 MG CAPSULE PO SCH (20:45)
[2017-12-25] MEDS: INSULIN GLARGINE,HUM.REC.ANLOG 100 UNITS/ML SQ SCH (20:51)
[2017-12-25 21:18] LABS: GLUCOMETER DEV NAME(LOC) 2WR 2E; GLUCOSE,POINT OF CARE 172 MG/DL (70-110)
[2017-12-26 01:00] VITALS: BP 119/70
[2017-12-26 05:59] LABS: GLUCOMETER DEV NAME(LOC) 2WR 1B; GLUCOSE,POINT OF CARE 120 MG/DL (70-110)
[2017-12-26 07:21] VITALS: BP 145/84
[2017-12-26] MEDS: DICLOFENAC SODIUM 1% 100 GM GEL [2GM] TP SCH ×3 (07:21→20:35)
[2017-12-26] MEDS: ACETAMINOPHEN 325 MG TABLET PO PRN (07:21)
[2017-12-26] MEDS: MetFORMIN HCL 500 MG TABLET PO SCH ×2 (08:02→17:25)
[2017-12-26] MEDS: ATORVASTATIN CALCIUM 40 MG TABLET PO SCH (08:03)
[2017-12-26] MEDS: ASPIRIN 81 MG CHEWABLE TABLET PO SCH (08:03)
[2017-12-26] MEDS: FAMOTIDINE 20 MG TABLET PO SCH (08:03)
[2017-12-26] MEDS: AmLODIPine BESYLATE 10 MG TABLET PO SCH (08:03)
[2017-12-26] MEDS: CHOLECALCIFEROL (VIT D3) 1,000 UNITS TABLET PO SCH (08:03)
[2017-12-26] MEDS: CARVEDILOL 6.25 MG TABLET PO SCH ×2 (08:03→20:35)
[2017-12-26] MEDS: VALSARTAN 160 MG TABLET PO SCH (08:05)
[2017-12-26] MEDS: CLOPIDOGREL BISULFATE 75 MG TABLET PO SCH (08:05)
[2017-12-26] MEDS: INSULIN LISPRO 100 UNITS/ML SQ SCH ×3 (08:09→17:25)
[2017-12-26 12:24] LABS: GLUCOMETER DEV NAME(LOC) 2WR 2E; GLUCOSE,POINT OF CARE 148 MG/DL (70-110)
[2017-12-26] MEDS: INSULIN LISPRO 100 UNITS/ML SQ PRN (12:51)
[2017-12-26] MEDS ORDERED: ACET-784 PO (14:24)
[2017-12-26 15:55] VITALS: BP 108/61
[2017-12-26 20:33] VITALS: BP 131/78
[2017-12-26] MEDS: SENNA 187 MG TABLET PO SCH (20:35)
[2017-12-26] MEDS: DOCUSATE SODIUM 100 MG CAPSULE PO SCH (20:35)
[2017-12-26] MEDS: INSULIN GLARGINE,HUM.REC.ANLOG 100 UNITS/ML SQ SCH (21:13)
[2017-12-26 22:28] LABS: GLUCOMETER DEV NAME(LOC) 2WR 1B; GLUCOSE,POINT OF CARE 132 MG/DL (70-110)
[2017-12-26 22:28] LABS: GLUCOMETER DEV NAME(LOC) 2WR 1B; GLUCOSE,POINT OF CARE 93 MG/DL (70-110)
[2017-12-26 23:37] VITALS: BP 129/72
[2017-12-27 06:34] LABS: GLUCOMETER DEV NAME(LOC) 2WR 1B; GLUCOSE,POINT OF CARE 114 MG/DL (70-110)
[2017-12-27 07:47] VITALS: BP 132/80
[2017-12-27] MEDS: ATORVASTATIN CALCIUM 40 MG TABLET PO SCH (08:37)
[2017-12-27] MEDS: AmLODIPine BESYLATE 10 MG TABLET PO SCH (08:37)
[2017-12-27] MEDS: FAMOTIDINE 20 MG TABLET PO SCH (08:37)
[2017-12-27] MEDS: DICLOFENAC SODIUM 1% 100 GM GEL [2GM] TP SCH (08:37)
[2017-12-27] MEDS: CLOPIDOGREL BISULFATE 75 MG TABLET PO SCH (08:37)
[2017-12-27] MEDS: CARVEDILOL 6.25 MG TABLET PO SCH (08:38)
[2017-12-27] MEDS: VALSARTAN 160 MG TABLET PO SCH (08:38)
[2017-12-27] MEDS: CHOLECALCIFEROL (VIT D3) 1,000 UNITS TABLET PO SCH (08:38)
[2017-12-27] MEDS: INSULIN LISPRO 100 UNITS/ML SQ SCH ×2 (08:46→12:17)
[2017-12-27] MEDS: ASPIRIN 81 MG CHEWABLE TABLET PO SCH (08:47)
[2017-12-27] MEDS: MetFORMIN HCL 500 MG TABLET PO SCH (08:48)
[2017-12-27] MEDS: ACETAMINOPHEN 325 MG TABLET PO PRN (09:53)
[2017-12-27] MEDS: INSULIN LISPRO 100 UNITS/ML SQ PRN (12:19)
[2017-12-27 13:13] LABS: GLUCOMETER DEV NAME(LOC) 2WR 2E; GLUCOSE,POINT OF CARE 220 MG/DL (70-110)
== END 2017-12-27 12:25 | disposition home health service (06) | DRG 65 ==
LOC: 2WR 15:33
PROVIDERS: ADMIT Specialist; ATTEND Physical Medicine & Rehabilitation
DX: I63.9 Cerebral infarction, unspecified (principal); G81.91 Hemiplegia, unspecified affecting right dominant side; E46 Unspecified protein-calorie malnutrition; E11.9 Type 2 diabetes mellitus without complications; I10 Essential (primary) hypertension; E66.9 Obesity, unspecified; E78.5 Hyperlipidemia, unspecified; E55.9 Vitamin D deficiency, unspecified; G56.00 Carpal tunnel syndrome, unspecified upper limb; G47.00 Insomnia, unspecified; E56.9 Vitamin deficiency, unspecified; M79.642 Pain in left hand; M79.641 Pain in right hand; F43.21 Adjustment disorder with depressed mood; M65.4 Radial styloid tenosynovitis [de Quervain]; Z90.710 Acquired absence of both cervix and uterus; Z68.32 Body mass index [BMI] 32.0-32.9, adult; Z98.51 Tubal ligation status; Z88.0 Allergy status to penicillin; Z82.49 Family history of ischemic heart disease and other diseases of the circulatory system; Z83.3 Family history of diabetes mellitus
CPT/HCPCS: 87081; 90471; 92507; 92508; 92523; 97032; 97035; 97110; 97112; 97116; 97150; 97162; 97165; 97530; 97535; 99366; J1650; J1815; Q0162